=== PATIENT | male | born 1975 | race Caucasian/White ===

== ENCOUNTER → 2016-04-24 | Outpatient (CLI) | payer OTHER | END | disposition home or self-care (01) | LOC: RAD 16:46 | PROVIDERS: ATTEND Family Medicine | DX: R10.9 Unspecified abdominal pain (principal); K76.0 Fatty (change of) liver, not elsewhere classified | CPT/HCPCS: 76700 ==

== ENCOUNTER 2018-03-17 11:49 | Emergency (ER) | payer BC, OTHER ==
[~2018-03-17] VITALS: Ht 182.9 cm; Wt 125.0 kg
--- NOTE | 2018-03-17 11:58 | NUR ---
FIRST CONTACT WITH PT: CORWIN. Pt has unlabored respirations equal bilaterally. Pt AOX4. Per pt, "I woke up this morning with a headache, I threw up a little but nothing came up, I have hot and cold flashes, and I can't focus."
--- NOTE | 2018-03-17 12:07 | NUR ---
ED MD at bedside. Pt denies cp, sob, trauma, diarrhea, pain with urination. All safety measures in place. Pt connected to NIBP and continous pulse ox.
--- NOTE | 2018-03-17 12:26 | NUR ---
Pt aware of need of urine sample. Pt states, "not right now," when asked if he could provide one at this time.
[2018-03-17] MEDS ORDERED: ONDANSETRON 2MG/ML, 2ML ONE (12:28)
[2018-03-17] MEDS ORDERED: MORPHINE SULFATE 4 MG/ML, 1ML ONE (12:29)
[2018-03-17] MEDS ORDERED: ONDANSETRON 2MG/ML, 2ML IVPush ONE (12:30)
[2018-03-17] MEDS ORDERED: SODIUM CHLORIDE FLUSH 10ML SYR IVF ONE (12:30)
[2018-03-17] MEDS ORDERED: MORPHINE SULFATE 4 MG/ML, 1ML IVPush PRN (12:30)
[2018-03-17 12:35] LABS: BASOPHILS # (AUTO) 0.01 x10^3/uL (0-0.1); BASOPHILS % (AUTO) 0 % (0-1); EOSINOPHILS # (AUTO) 0.04 x10^3/uL (0-0.4); EOSINOPHILS % (AUTO) 0 % (1-7); LYMPHOCYTES # (AUTO) 0.34 x10^3/uL (1-3.4); LYMPHOCYTES % (AUTO) 4 % (22-44); MD NO; MEAN CORPUSCULAR HGB CONC 34.2 g/dL (33.2-36.2); MEAN CORPUSCULAR VOLUME 87.7 fL (81-97); MEAN PLATELET VOLUME 8.4 fL (7.4-10.4); MONOCYTES # (AUTO) 0.66 x10^3/uL (0.2-0.8); MONOCYTES % (AUTO) 7 % (2-9); NEUTROPHILS # (AUTO) 8.55 x10^3/uL (1.8-6.8); NEUTROPHILS % (AUTO) 89 % (42-75); PLATELET COUNT 260 x10^3/uL (130-400); RED CELL DISTRIBUTION WIDTH 13.4 % (9.4-14.8)
--- NOTE | 2018-03-17 12:36 | NUR ---
Provided medication per EMAR. Pt appreciative.
[2018-03-17 12:42] LABS: ALANINE AMINOTRANSFERASE 71 U/L (12-78); ANION GAP 7 mmol/L (5-15); CALCIUM 9.7 mg/dL (8.5-10.1); CHLORIDE 106 mmol/L (98-107)
[2018-03-17 12:45] LABS: ALKALINE PHOSPHATASE 116 U/L (45-117); BILIRUBIN,TOTAL 0.8 mg/dL (0.2-1.0); TOTAL PROTEIN 8.2 g/dL (6.4-8.2)
--- NOTE | 2018-03-17 13:10 | NUR ---
LUNCH RN: PT PLACED ON SUP O2 TO KEEP SAT WNL WHILE SLEEPING. OTHER VSS. NO COMPLAINTS AT THIS TIME. FAMILY AT BEDSIDE. CALL LIGHT WITHIN REACH. WILL CONTINUE TO MONITOR
--- NOTE | 2018-03-17 13:37 | NUR ---
Provided pt urinal for urine sample. Pt appreciative. Pt using urinal at bedside.
--- NOTE | 2018-03-17 13:37 | NUR ---
Spoke to CT. CT with other pt at this time, will come get this pt next as soon as possible.
--- NOTE | 2018-03-17 13:46 | NUR ---
Sent pt's urine to lab.
--- NOTE | 2018-03-17 13:48 | NUR ---
Pt transported on [place].
[2018-03-17 13:59] LABS: MICROSCOPIC NOT IND
[2018-03-17] MEDS ORDERED: ACETAMINOPHEN 500 MG TABLET PO ONE (14:00)
[2018-03-17] MEDS ORDERED: OMNIPAQUE 350 MG/ML, 100ML BOTTLE ONE (14:00)
[2018-03-17] MEDS ORDERED: ACETAMINOPHEN 500 MG TABLET ONE (14:00)
--- NOTE | 2018-03-17 14:03 | NUR ---
Pt back to room on [facility] from [place]. Provided pt medication per EMAR, water, and ice chips, ED aware. Pt appreciative.
[2018-03-17 14:05] LABS: CULTURE INDICATED? NO
[2018-03-17 14:57] VITALS: BP 111/59
--- NOTE | 2018-03-17 14:57 | NUR ---
Patient discharge instructions and they have confirmed that they understand the instructions. Patient ambulatory with steady gait. Pt left with all personal belongings, discharge paperwork, and prescription.
== END 2018-03-17 15:01 | disposition home or self-care (01) ==
LOC: ED 14:58
DX: R50.9 Fever, unspecified (principal); R10.31 Right lower quadrant pain; R11.2 Nausea with vomiting, unspecified
CPT/HCPCS: 36415; 74177; 80053; 81003; 83605; 83690; 85025; 96374; 96375; 99284; J2405; Q9967